=== PATIENT | male | born 1975 | race African-American/Black ===

== ENCOUNTER 2021-09-11 20:54 | Emergency (ER) | payer SELFPAY ==
[2021-09-11] MEDS ORDERED: Dexamethasone 4 mg/ml Vial ONE (21:24)
[2021-09-11] MEDS ORDERED: Metoclopramide HCl 10 MG/2 ML VIAL ONE (21:25)
[2021-09-11] MEDS ORDERED: diphenhydrAMINE 50 MG/ML VIAL ONE (21:25)
[2021-09-11 21:40] LABS: #Eosinphils 0.1 thou/uL (0.0-0.7); #Lymphocytes 0.7 thou/uL (1.20-3.40); #Monocytes 0.6 thou/uL (0.11-0.59); #Neutrophils 5.7 thou/uL (1.40-6.50); %Basophils 0.1 % (0.0-1.0); %Eosinophils 1.7 % (0.0-10.0); %Lymphocytes 9.8 % (21.0-51.0); %Monocytes 8.8 % (0.0-10.0); %Neutrophils 79.6 % (42.0-75.0); Mean Corpuscular HGB CONC 32.5 g/dL (32.0-36.0); Mean Corpuscular Hemoglobin 27.8 pg (27.0-31.0); Mean Corpuscular Volume 85.5 fL (78.0-98.0); Mean Platelet Volume 7.6 fL (7.4-10.4); Platelet Count 219 thou/uL (130-400); RBC Distribution Width 12.2 % (11.5-14.5); Red Blood Cell (RBC) Count 4.69 mill/uL (4.70-6.10); White Blood Cell (WBC) Count 7.2 thou/uL (4.8-10.8)
[2021-09-11 22:03] LABS: ALT (SGPT) 34 U/L (8-55); AST (SGOT) 25 U/L (5-34); Albumin 4.3 g/dL (3.5-5.0); Alkaline Phosphatase 58 U/L (40-110); Anion Gap 15 mmol/L (10-20); BUN (Urea Nitrogen) 8 mg/dL (8.9-20.6); Bilirubin, Total 0.4 mg/dL (0.2-1.2); CK (CPK) 521 U/L (30-200); Calc. Creatinine Clearance 0 mL/min (70-130); Calcium 9.7 mg/dL (7.8-10.44); Carbon Dioxide 24 mmol/L (22-29); Chloride 102 mmol/L (98-107); Estimated GFR 75; Globulin 3.5 g/dL (2.4-3.5); Glucose 102 mg/dL (70-105); Lipase 17 U/L (8-78); Potassium 4.2 mmol/L (3.5-5.1); Protein, Total 7.8 g/dL (6.0-8.3); Sodium 137 mmol/L (136-145)
== END 2021-09-11 22:50 | disposition home or self-care (01) ==
LOC: ERS 20:54
DX: R53.1 Weakness (principal); R42 Dizziness and giddiness; R29.700 NIHSS score 0; R51.9 Headache, unspecified
CPT/HCPCS: 70450; 80053; 82550; 83690; 84484; 85025; 93005; 96374; 96375; J1100; J1200; J2765